=== PATIENT | male | born 1945 | race Caucasian/White ===

== ENCOUNTER 2019-09-03 18:09 | Emergency (ER) | payer OTHER, MEDICARE, SELFPAY ==
[2019-09-03] VITALS (11 sets, daily range): BP systolic 159–201; BP diastolic 92–138; PULSE 90–118; RESP 16–24; TEMP 36.8; O2SAT 87–98; BMI 21.9
--- NOTE | 2019-09-03 18:21 | ED_ITS ---
Entered by Blossom Sumner, acting as scribe for HPI - SOB/Dyspnea General: Chief Complaint: Shortness of Breath/Dyspnea Stated Complaint: RESP DISTRESS Time Seen by Provider: 09/03/19 18:26 Source: patient Mode of arrival: EMS Limitations: no limitations History of Present Illness: HPI Narrative: 74 yo Male presents to ED with complaint of shortness of breath. Pt states that for the last couple of weeks he has been getting more and more short of breath. Pt states that today he couldn't take it anymore. Pt states that he is normally on 3 liters of oxygen at home but today he was on 5 liters and was not getting any relief. MD elicited complaint: shortness of breath Pertinent past history: COPD Onset (ago): week(s) Timing: progressively worsening Exacerbating factors: exertion and coughing Relieving factors: nothing Known history of: COPD Associated symptoms: Reports cough and orthopnea; Deny abdominal pain, fever(s), nausea, polydipsia, polyuria or vomiting Treatment prior to arrival: oxygen and bronchodilator Related Data: Home oxygen amount: 3 liters Review of Systems General: Reports: 10 or more systems reviewed and unremarkable except in HPI and below Const: Denies: fever Eyes: Denies: change in vision or blurry vision ENMT: Denies: throat pain, enlarged tonsils, painful swallowing, hoarseness, mouth pain or swelling of lips/tongue Card: Reports: shortness of breath on exertion and shortness of breath when lying down Resp: Reports: shortness of breath and productive cough; Denies: non-productive cough GI: Denies: abdominal pain, nausea or vomiting : Denies: flank pain, painful urination, urinary frequency, urinary urgency or urinary hesitancy Musc: Denies: neck pain, back pain or extremity swelling Skin/Breast: Denies: rash, itching or redness Neuro: Denies: headache, numbness in extremities or weakness in extremities Endo: Denies: excessive urination, excessive thirst or tired all the time [facility] ED PFSH: Social History Smoking and tobacco status: former smoker Physical Exam Const: COMMON NORMALS: no apparent distress, average body habitus, oriented x3, no limitations, healthy appearing, alert and well nourished HENMT: COMMON NORMALS: normocephalic, head/scalp atraumatic and moist oral mucous membranes HEAD & SCALP: normocephalic and atraumatic Eye: COMMON NORMALS: PERRL, EOMs intact bilaterally, conjunctivae normal and no scleral icterus CONJUNCTIVA: Yes conjunctivae normal PUPIL: Yes PERRL Neck/C-Spine: COMMON NORMALS: full ROM, supple, no meningeal signs, no JVD and no carotid bruits Chest: COMMONS NORMALS: inspection of chest normal and palpation of chest normal Resp: COMMON NORMALS: normal respiratory effort, no retractions, no use of accessory muscles and percussion normal; negative for clear to auscultation bilaterally EFFORT & INSPECTION: Yes tachypneic AUSCULTATION: not clear to auscultation bilaterally, crackles Laterality: bilateral (left greater than right), wheezes (mainly on right) and diminished lung sounds bilateral (left greater than right) PERCUSSION: percussion normal Cardio: COMMON NORMALS: no JVD, regular rate, regular rhythm, S1 normal heart sound, S2 normal heart sound, no gallops, no clicks, no murmurs, no rub and peripheral pulses 2+ throughout RATE: regular rate RHYTHM: regular rhythm HEART SOUNDS: S1 normal and S2 normal PERIPHERAL PULSES: pulses 2+ throughout GI: COMMON NORMALS: normal to inspection, nondistended, normoactive bowel sounds, soft to palpation, non-tender, no hepatosplenomegaly, no masses and no bruits PALPATION: Yes soft and Yes no hepatosplenomegaly : COMMON NORMALS: Yes no CVA tenderness BLADDER/KIDNEY EXAM: Yes no CVA tenderness Back/Pelvis: COMMON NORMALS: no CVA tenderness Extremity: COMMON NORMALS: normal to inspection, full ROM, normal capillary refill, no calf tenderness and no pedal edema Neuro: COMMON NORMALS: oriented x3 SENSORIUM/ORIENTATION: Yes alert MENINGEAL SIGNS: Yes no meningeal signs Skin: COMMON NORMALS: no rashes or lesions noted, no wounds, skin turgor normal, no jaundice, no petechiae and no mottling GENERAL SKIN EXAM: no rash es or lesions noted and turgor normal Course Consultations: Consultation #1: Dr. Price, hospitalist at [facility] in [place]. Patient should be transferred to the ED Time: 23:40 Consultation #2: Dr. Baird, ED physician at [facility] in [place]. He kindly accepted the patient to his service. Time: 23:45 Vital Signs: Vital signs: Vital Signs Temperature 98.2 F 09/03/19 18:17 Pulse Rate 96 09/03/19 23:37 Respiratory Rate 20 H 09/03/19 22:43 Blood Pressure 159/105 09/03/19 22:43 Pulse Oximetry 96 09/03/19 23:37 MDM - SOB/Dyspnea MDM Narrative: Medical decision making narrative: 74-year-old gentleman with a history of COPD who presents to the emergency department with concerns of worsening shortness of breath. He has a history of chronic respiratory failure and is on home oxygen but needed to bump it up to 5 L for any improvement. He was still hypoxic on 5 L and an ABG showed hypoxia and hypercapnia. He was therefore put on a BiPAP following which clinically he improved dramatically. He was less tachypneic, heart rate was no longer tachycardic and was back down to normal, blood pressure also trended towards normal. Repeat blood gas however showed worsening parameters even though clinically he appears better. I discussed with our hospitalist here and she feels the patient needs to be in the CSU or ICU and we do have events so the patient will need to be transferred out. The hospitalist at [facility] in [place], which is where the patient wanted to be transferred to, figured that the patient will better be served if he has transferred to the emergency department at [facility] in [place]. The patient is therefore discharged and transferred to [facility] ED. He was given a dose of antibiotic and Lasix here in the emergency department as his proBNP levels were elevated at greater than 5000. The patient denies any prior history of CHF. Medical Records: Attestation: I reviewed the patient's medical records. Lab Data: Attestation: I reviewed the patient's lab results. Labs: Lab Results 09/03/19 09/03/19 09/03/19 Range/Units 19:21 19:22 19:57 WBC 7.2 (4.0-10.0) 10^3/ uL RBC 4.63 (4.1-5.3) 10^6/u L Hgb 14.0 (11.7-16.6) g/dL Hct 45.0 (42.0-52.0) % MCV 97.2 H (80-94) fL MCH 30.2 (28.0-34.0) pg MCHC 31.1 (30.0-36.0) g/dL RDW 12.7 (12.1-15.1) % Plt Count 156 (130-400) 10^3/c mm MPV 10.6 H (7.4-10.4) fL Neut % (Auto) 85.8 % Lymph % (Auto) 6.1 % Dougherty % (Auto) 6.5 % Eos % (Auto) 0.6 % Baso % (Auto) 0.7 % Neut # (Auto) 6.2 (1.8-7.7) 10^3/u L Lymph # (Auto) 0.4 L (0.8-4.8) 10^3/u L Dougherty # (Auto) 0.5 (0.2-0.9) 10^3/u L Eos # (Auto) 0.0 (0.0-0.8) 10^3/u L Baso # (Auto) 0.1 (0.0-0.1) 10^3/u L Nucleated RBC % (a uto) 0 % Nucleated RBCs # 0.0 /100WBC Specimen Type Arterial Sample Site Brachial, left ABG pH 7.36 (7.35-7.45) ABG pCO2 64.0 H* (35-45) mmHg ABG pO2 83.3 (80.0-100.0) mmH g ABG HCO3 36.4 H (22-26) mmol/L ABG Base Excess 8.5 H (-2.0-2.0) mmol/ L Sandeep Test N/a Hematocrit 43.7 (42-52) % Hgb O2 Saturation 93.6 L (95-100) % Carboxyhemoglobin 1.5 (0.4-20.1) %THgb Methemoglobin 0.7 (0.4-1.5) % Total Hemoglobin 14.2 (14-18) g/dL O2 Delivery Device Nc O2 Liters/Min 6.0 % FiO2 % Cider Maker ID [email or web address] Sodium (136-145) mmol/L Potassium (3.5-5.1) mmol/L Chloride (98-107) mmol/L Carbon Dioxide (22-29) mmol/L Anion Gap (5-19) BUN (8-23) mg/dL Creatinine (0.7-1.2) mg/dL Glucose (65-115) mg/dL Calculated Osmolal ity (285-295) mOsm/k g Lactic Acid (Sepsi s) 2.1 (0.5-2.2) mmol/L Calcium (8.5-10.5) mg/dL Total Bilirubin (0.15-1.2) mg/dL AST (0-40) U/L ALT (0-41) U/L Alkaline Phosphata se (40-130) IU/L Troponin T Baselin e (0-15) ng/mL Troponin T 120 Min [place] (0-15) ng/mL Delta Troponin T (0-10) ABS# NT-Pro-B Natriuret Pep (0-125) pg/mL Total Protein (6.6-8.7) g/dL Albumin (3.5-5.2) g/dL Globulin (1.3-4.6) g/dL Influenza Type A A g (Negative) POC Influenza B Ag (Negative) 09/03/19 09/03/19 09/03/19 Range/Units 19:57 19:57 21:46 WBC (4.0-10.0) 10^3/ uL RBC (4.1-5.3) 10^6/u L Hgb (11.7-16.6) g/dL Hct (42.0-52.0) % MCV (80-94) fL MCH (28.0-34.0) pg MCHC (30.0-36.0) g/dL RDW (12.1-15.1) % Plt Count (130-400) 10^3/c mm MPV (7.4-10.4) fL Neut % (Auto) % Lymph % (Auto) % Dougherty % (Auto) % Eos % (Auto) % Baso % (Auto) % Neut # (Auto) (1.8-7.7) 10^3/u L Lymph # (Auto) (0.8-4.8) 10^3/u L Dougherty # (Auto) (0.2-0.9) 10^3/u L Eos # (Auto) (0.0-0.8) 10^3/u L Baso # (Auto) (0.0-0.1) 10^3/u L Nucleated RBC % (a uto) % Nucleated RBCs # /100WBC Specimen Type Sample Site ABG pH (7.35-7.45) ABG pCO2 (35-45) mmHg ABG pO2 (80.0-100.0) mmH g ABG HCO3 (22-26) mmol/L ABG Base Excess (-2.0-2.0) mmol/ L Sandeep Test Hematocrit (42-52) % Hgb O2 Saturation (95-100) % Carboxyhemoglobin (0.4-20.1) %THgb Methemoglobin (0.4-1.5) % Total Hemoglobin (14-18) g/dL O2 Delivery Device O2 Liters/Min % FiO2 % Cider Maker ID Sodium 140 (136-145) mmol/L Potassium 5.0 (3.5-5.1) mmol/L Chloride 95 L (98-107) mmol/L Carbon Dioxide 34 H (22-29) mmol/L Anion Gap 16.0 (5-19) BUN 17 (8-23) mg/dL Creatinine 0.8 (0.7-1.2) mg/dL Glucose 158 H (65-115) mg/dL Calculated Osmolal ity 290 (285-295) mOsm/k g Lactic Acid (Sepsi s) (0.5-2.2) mmol/L Calcium 10.1 (8.5-10.5) mg/dL Total Bilirubin 1.0 (0.15-1.2) mg/dL AST 18 (0-40) U/L ALT 14 (0-41) U/L Alkaline Phosphata se 57 (40-130) IU/L Troponin T Baselin e 37 H (0-15) ng/mL Troponin T 120 Min [place] 34.28 H (0-15) ng/mL Delta Troponin T -2.72 L (0-10) ABS# NT-Pro-B Natriuret Pep 5885 H (0-125) pg/mL Total Protein 7.4 (6.6-8.7) g/dL Albumin 4.9 (3.5-5.2) g/dL Globulin 2.5 (1.3-4.6) g/dL Influenza Type A A g (Negative) POC Influenza B Ag (Negative) 09/03/19 09/03/19 Range/Units 22:05 22:09 WBC (4.0-10.0) 10^3/ uL RBC (4.1-5.3) 10^6/u L Hgb (11.7-16.6) g/dL Hct (42.0-52.0) % MCV (80-94) fL MCH (28.0-34.0) pg MCHC (30.0-36.0) g/dL RDW (12.1-15.1) % Plt Count (130-400) 10^3/c mm MPV (7.4-10.4) fL Neut % (Auto) % Lymph % (Auto) % Dougherty % (Auto) % Eos % (Auto) % Baso % (Auto) % Neut # (Auto) (1.8-7.7) 10^3/u L Lymph # (Auto) (0.8-4.8) 10^3/u L Dougherty # (Auto) (0.2-0.9) 10^3/u L Eos # (Auto) (0.0-0.8) 10^3/u L Baso # (Auto) (0.0-0.1) 10^3/u L Nucleated RBC % (a uto) % Nucleated RBCs # /100WBC Specimen Type Arterial Sample Site Brachial, left ABG pH 7.29 L (7.35-7.45) ABG pCO2 70.9 H* (35-45) mmHg ABG pO2 67.9 L (80.0-100.0) mmH g ABG HCO3 34.2 H (22-26) mmol/L ABG Base Excess 5.1 H (-2.0-2.0) mmol/ L Sandeep Test N/a Hematocrit 43.5 (42-52) % Hgb O2 Saturation (95-100) % Carboxyhemoglobin (0.4-20.1) %THgb Methemoglobin (0.4-1.5) % Total Hemoglobin (14-18) g/dL O2 Delivery Device Bipap O2 Liters/Min % FiO2 40.0 % Cider Maker ID [email or web address] Sodium (136-145) mmol/L Potassium (3.5-5.1) mmol/L Chloride (98-107) mmol/L Carbon Dioxide (22-29) mmol/L Anion Gap (5-19) BUN (8-23) mg/dL Creatinine (0.7-1.2) mg/dL Glucose (65-115) mg/dL Calculated Osmolal ity (285-295) mOsm/k g Lactic Acid (Sepsi s) (0.5-2.2) mmol/L Calcium (8.5-10.5) mg/dL Total Bilirubin (0.15-1.2) mg/dL AST (0-40) U/L ALT (0-41) U/L Alkaline Phosphata se (40-130) IU/L Troponin T Baselin e (0-15) ng/mL Troponin T 120 Min [place] (0-15) ng/mL Delta Troponin T (0-10) ABS# NT-Pro-B Natriuret Pep (0-125) pg/mL Total Protein (6.6-8.7) g/dL Albumin (3.5-5.2) g/dL Globulin (1.3-4.6) g/dL Influenza Type A A g Negative (Negative) POC Influenza B Ag Negative (Negative) EKG Data^: EKG 1: Attestation: I personally reviewed and interpreted this EKG as follows: EKG Interpretation Date: 09/03/19 EKG interpretation time: 19:41 Prior EKG tracings: not available for review Interpretation: Sinus rhythm. Heart rate 97 bpm. Left bundle branch block. EKG 2: Attestation: I personally reviewed and interpreted this EKG as follows: EKG Interpretation Date: 09/03/19 EKG interpretation time: 22:16 Prior EKG tracings: available for review Interpretation: Unchanged from earlier today. Discharge Plan Discharge Patient Disposition: Xfer Short-Term Hosp Clinical Impression: Acute exacerbation of chronic obstructive pulmonary disease Acute and chronic respiratory failure ([id number]) Qualifiers: Respiratory failure complication: hypoxia and hypercapnia Qualified Code(s): J96.21 - Acute and chronic respiratory failure with hypoxia Congestive heart failure Qualifiers: Heart failure type: unspecified Heart failure chronicity: unspecified Qualified Code(s): I50.9 - Heart failure, unspecified Condition: Stable Discharge Orders: Transfer Out of Facility (Order); Ordered 03/16/20 Ordered By: Zuhair Tanner Referrals: Daniel Rodrigues, [Family Provider] - Coding Level of Care Code ED Assistant Professor Of German for Chg Fwd Exam Comprehensive The documentation recorded by the aTisha khan Carmen, accurately reflects the service I personally performed and the decisions made by , Zuhair Tanner MD, [facility] [place] Sep 03, 2019 18:09
--- NOTE | 2019-09-03 18:57 | XR_ITS ---
WS: [id number] XR chest 1V portable [id number] REASON FOR EXAM: shortness of breath FINDINGS: Comparisons were made to May 09, 2019. Reticular nodular pattern persists throughout both lung son the pattern is similar to the previous exam. There is chronic obstructive pulmonary disease findings. There is bypass changes with a small heart. XR/XR chest 1V portable [id number] IMPRESSION: Diffuse reticular nodular pattern consistent with interstitial disease unchange d since May 09, 2019.
[2019-09-03] MEDS: ipratropium-albuterol 3 mL Neb INHALATION (19:27)
[2019-09-03 19:29] LABS: Basophils # 0.1 10^3/uL (0.0-0.1); Basophils % 0.7 %; Eosinophils % 0.6 %; Lymphocytes # 0.4 10^3/uL (0.8-4.8); Lymphocytes % 6.1 %; Mean Corpuscular HGB Conc 31.1 g/dL (30.0-36.0); Mean Corpuscular Hemoglobin 30.2 pg (28.0-34.0); Mean Corpuscular Volume 97.2 fL (80-94); Mean Platelet Volume 10.6 fL (7.4-10.4); Monocytes # 0.5 10^3/uL (0.2-0.9); Monocytes % 6.5 %; Neutrophils # 6.2 10^3/uL (1.8-7.7); Neutrophils % 85.8 %; Nucleated Red Blood Cells % 0 %; Platelet Count 156 10^3/cmm (130-400); Red Blood Count 4.63 10^6/uL (4.1-5.3); Red Cell Distribution Width 12.7 % (12.1-15.1); White Blood Count 7.2 10^3/uL (4.0-10.0)
[2019-09-03 19:32] LABS: ABG PH Result 7.36 (7.35-7.45); Arterial Blood Gas Hematocrit 43.7 % (42-52); Base Excess ABG 8.5 mmol/L (-2.0-2.0); Blood Gas Sample Site Brachial, left; Blood Gas Sample Type Arterial; Carboxyhemoglobin 1.5 %THgb (0.4-20.1); HCO3 ABG 36.4 mmol/L (22-26); HGB O2 Sat 93.6 % (95-100); Methemoglobin 0.7 % (0.4-1.5); Oxygen Device NC; PO2 ABG 83.3 mmHg (80.0-100.0); Total Hemoglobin 14.2 g/dL (14-18)
--- NOTE | 2019-09-03 19:56 | CTR_ITS ---
PROCEDURE INFORMATION: Exam: CT Angiography Chest With Contrast Exam date and time: 09/03/2019 8:20 PM Age: 74 years old Clinical indication: Shortness of breath; Prior surgery; Surgery date: 6+ months; Surgery type: Valve replacement; Additional info: SOB TECHNIQUE: Imaging protocol: Computed tomographic angiography of the chest with intravenous contrast. 3D rendering: MIP and/or 3D reconstructed images were created by the technologist. Total DLP: 605.44 mGy-cm Radiation optimization: All CT scans at this facility use at least one of these dose optimization techniques: automated exposure control; mA and/or kV adjustment per patient size (includes targeted exams where dose is matched to clinical indication); or iterative reconstruction. Contrast material: OMNI 350; Contrast volume: 95 ml; Contrast route: 18; COMPARISON: CT chest w con* [id number] 04/12/2019 3:02 PM FINDINGS: Pulmonary arteries: Currently no visible evidence of pulmonary embolism/pulmonary arterial thrombus. 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 No visible intimal flap or dissection. Arterial sclerosis. Lungs: Advanced bullous emphysema. Senile fibrosis. There are two 5 mm pulmonary nodules in the subpleural space left lower lobe series 3, image 49. For patients at low risk (minimal or absent history of smoking and of other known risk factors), no routine follow-up is indicated. For patients at high risk (history of smoking or of other known risk factors), consider optional CT at 12 months. (Genie et al., Fleischner Society, 2017). Pleural space: Calcified pleural plaques bilaterally. Heart: Cardiomegaly. Left ventricle hypertrophy. Advanced 3 vessel coronary artery disease. Status post sternotomy chest and aortic valve prosthesis. Liver: Small subtly enhancing 8 mm structure left hepatic lobe series 2, image 513. This structure was identified on the exam of 04/12/2019 and remains stable. Potential cavernous hemangioma. Too small to characterize definitively. Rare tiny simple hepatic cysts. Rare focus of calcified granuloma hepatic parenchyma. Gallbladder and bile ducts: Cholelithiasis. No visible intra or extrahepatic biliary ectasia. Kidneys and ureters: Simple renal cortical cysts the largest superior pole right kidney dimensions 35 mm. No follow-up recommended. Lymph nodes: Unremarkable. No enlarged lymph nodes. Bones/joints: No visible active musculoskeletal G. Soft tissues: Unremarkable for age. CT/CT angio chest PE protcl [id number] IMPRESSION: 1. No visible evidence of pulmonary embolism/pulmonary arterial thrombus. 2. Advanced bullous emphysema. 3. There are two 5 mm pulmonary nodules in the subpleural space left lower lobe series 3, image 49. For patients at low risk (minimal or absent history of smoking and of other known risk factors), no routine follow-up is indicated. For patients at high risk (history of smoking or of other known risk factors), consider optional CT at 12 months. (Genie et al., Fleischner Society, 2017). 4. Advanced 3 vessel coronary artery disease. 5. Cardiomegaly with left ventricular hypertrophy. 6. Cholelithiasis. 7. Numerous other nonurgent, nonemergent, chronic, and age related findings discussed in text. Radiation Dose CTDIVOL = (mGy): DLP = 605.44 (mGy-cm)
--- NOTE | 2019-09-03 20:00 | ECG_ITS ---
Measurements Intervals [place] Rate: 97 P: 74 NH: 147 QRS: -25 QRSD: 144 T: 103 QT: 369 QTc: 470 SINUS RHYTHM LEFT ATRIAL ENLARGEMENT [-0.15mV P WAVE IN V1/V2] LEFT BUNDLE BRANCH BLOCK Compared to ECG 05/09/2019 12:40:22 Sinus arrhythmia no longer present Electronically Signed On 09-04-2019 13:01:37 CDT by Glenis Miller M.D. [email or web address]
[2019-09-03 20:29] LABS: Lactic Acid level (Lactate) 2.1 mmol/L (0.5-2.2)
[2019-09-03 20:31] LABS: Troponin(5th) Baseline 37 ng/mL (0-15)
[2019-09-03 20:39] LABS: Alanine Aminotransferase 14 U/L (0-41); Albumin Level 4.9 g/dL (3.5-5.2); Alkaline Phosphatase 57 IU/L (40-130); Aspartate Amino Transferase 18 U/L (0-40); Blood Urea Nitrogen 17 mg/dL (8-23); Calcium 10.1 mg/dL (8.5-10.5); Carbon Dioxide 34 mmol/L (22-29); Chloride 95 mmol/L (98-107); Globulin 2.5 g/dL (1.3-4.6); Glucose 158 mg/dL (65-115); NT Pro B Type Natriuretic Pept 5885 pg/mL (0-125); Osmolality Calculated 290 mOsm/kg (285-295); Sodium 140 mmol/L (136-145); Total Protein 7.4 g/dL (6.6-8.7)
--- NOTE | 2019-09-03 21:13 | PC.NURSE ---
BRYCE Bobo stated patient does not have CPAP/BiPAP machine at home and home oxygen can only be set up to 5 L.
--- NOTE | 2019-09-03 21:14 | PC.PHAR ---
UNABLEL TO OBTAIN. PT INTUBATED AND NO FAMILY PRESENT.
--- NOTE | 2019-09-03 22:00 | ECG_ITS ---
Measurements Intervals [place] Rate: 95 P: 75 MT: 141 QRS: -9 QRSD: 145 T: 112 QT: 383 QTc: 484 SINUS RHYTHM WITH OCCASIONAL VENTRICULAR PREMATURE COMPLEXES LEFT ATRIAL ENLARGEMENT [-0.15mV P WAVE IN V1/V2] LEFT BUNDLE BRANCH BLOCK Compared to ECG 05/09/2019 12:40:22 Ventricular premature complex(es) now present Sinus arrhythmia no longer present Electronically Signed On 09-04-2019 13:12:19 CDT by Glenis Miller M.D. [email or web address]
[2019-09-03] MEDS: azithromycin 500 MG in sodium chloride 0.9% 250 ML 250 MG IV (22:04)
[2019-09-03 22:26] LABS: Troponin 5 2HR 34.28 ng/mL (0-15)
[2019-09-03 22:29] LABS: Troponin 5 2HR Delta -2.72 ABS# (0-10)
[2019-09-03] MEDS: iohexol 350 mg/mL 100 mL Btl IV (22:37)
[2019-09-03 22:47] LABS: ABG PH Result 7.29 (7.35-7.45); Arterial Blood Gas Hematocrit 43.5 % (42-52); Base Excess ABG 5.1 mmol/L (-2.0-2.0); Blood Gas Sample Site Brachial, left; Blood Gas Sample Type Arterial; HCO3 ABG 34.2 mmol/L (22-26); Oxygen Device BIPAP; PO2 ABG 67.9 mmHg (80.0-100.0)
[2019-09-03 22:48] LABS: ABG PCO2 70.9 mmHg (35-45)
[2019-09-03 22:51] LABS: Influenza A by IFA Negative (Negative); Influenza B by IFA Negative (Negative)
[2019-09-03] MEDS: FUROsemide 10 mg/mL SDV 2mL 20 MG IVP (23:44)
[2019-09-04 00:02] VITALS: BP 161/93; PULSE 93; RESP 22; O2SAT 97
[2019-09-04 00:30] VITALS: BP 163/95; PULSE 97; RESP 22; O2SAT 97
[2019-09-04 01:00] VITALS: BP 180/95; PULSE 106; RESP 22; O2SAT 94
[2019-09-04] MEDS: cefTRIAXone 1,000 MG in sodium chloride 0.9% (plus) 50 ML 100 MG IV (01:03)
== END 2019-09-04 01:38 | disposition short-term general hospital (02) ==
PROVIDERS: Emergency Provider Family Medicine; Family Provider Emergency Medicine Emergency Medical Services
DX: J44.1 Chronic obstructive pulmonary disease with (acute) exacerbation (principal); J96.21 Acute and chronic respiratory failure with hypoxia; J96.22 Acute and chronic respiratory failure with hypercapnia; I50.9 Heart failure, unspecified; Z99.81 Dependence on supplemental oxygen; Z87.891 Personal history of nicotine dependence; R91.8 Other nonspecific abnormal finding of lung field; I25.10 Atherosclerotic heart disease of native coronary artery without angina pectoris; I51.7 Cardiomegaly; K80.20 Calculus of gallbladder without cholecystitis without obstruction; I44.7 Left bundle-branch block, unspecified
CPT/HCPCS: 12345; 36415; 36600; 71045; 71275; 80053; 82803; 82805; 83605; 83880; 84484; 85025; 87040; 87205; 87804; 93005; 94640; 94660; 96365; 96367; 96374; 96375; 99284; 99291; J0456; J0696; J1940; J2930; J7050; Q9967